=== PATIENT | female | born 1975 | race African-American/Black ===

== ENCOUNTER 2017-06-21 21:28 | Emergency (ER) | payer MEDICAID, OTHER ==
[~2017-06-21] VITALS: Ht 167.6 cm; Wt 68.0 kg
[2017-06-21] MEDS ORDERED: predniSONE 50 MG TABLET PO ONE (23:15)
--- NOTE | 2017-06-21 23:16 | NUR ---
Patient discharged to home in stable conditon. Written and verbal after care instructions given. Patient verbalizes understanding of instructions.
[2017-06-21] MEDS ORDERED: predniSONE 50 MG TABLET ONE (23:23)
== END 2017-06-21 23:17 | disposition home or self-care (01) ==
LOC: ER 21:29
DX: J45.909 Unspecified asthma, uncomplicated (principal); Z88.0 Allergy status to penicillin
CPT/HCPCS: A4663; J7512

== ENCOUNTER 2017-12-20 21:25 | Emergency (ER) | payer OTHER ==
[~2017-12-20] VITALS: Ht 167.6 cm; Wt 72.6 kg
--- NOTE | 2017-12-20 21:51 | NUR ---
DR MERLY LOPEZ MD AT BEDSIDE FOR MSE.
--- NOTE | 2017-12-20 22:01 | NUR ---
Patient discharged to home in stable conditon. Written and verbal after care instructions given. Patient verbalizes understanding of instructions. Pt denies dizzinesss, SOB, CP, N/V at this time. No distress noted. Pt ambulated from ER w/ steady gait. Pt took all personal belongings.
[2017-12-20 22:05] VITALS: BP 114/76
== END 2017-12-20 22:05 | disposition home or self-care (01) ==
LOC: ER 21:27
DX: Z00.00 Encounter for general adult medical examination without abnormal findings (principal); Z88.0 Allergy status to penicillin
CPT/HCPCS: A4663

== ENCOUNTER 2018-05-27 16:50 | Emergency (ER) | payer OTHER ==
[~2018-05-27] VITALS: Ht 167.6 cm; Wt 72.6 kg
[2018-05-27 17:14] VITALS: BP 122/280
--- NOTE | 2018-05-27 17:14 | NUR ---
MSE COMPLETED, PT D/C'D BASIL, ACI GIVEN. PT AMBUKLATED W/O DIFF,TOOK ALL BELONGINGS.
== END 2018-05-27 17:16 | disposition home or self-care (01) ==
LOC: ER 16:53
DX: Z04.1 Encounter for examination and observation following transport accident (principal); Z88.0 Allergy status to penicillin; V49.9XXA Car occupant (driver) (passenger) injured in unspecified traffic accident, initial encounter; Y93.89 Activity, other specified; Y92.89 Other specified places as the place of occurrence of the external cause; Y99.8 Other external cause status
CPT/HCPCS: A4663